=== PATIENT | male | born 1975 | race Caucasian/White ===

== ENCOUNTER 2023-12-26 11:09 | Outpatient (CLI) | payer OTHER, SELFPAY ==
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
--- NOTE | 2023-12-26 11:45 | XR_ITS ---
Patient: EVIN AGOSTO Facility:?[facility] Patient ID:?[id number] Site Patient ID:?[id number]. Site :?1975 Study:?XRay-Spine Lumbar 2 VIEW-12/26/2023 11:56:22 AM Ordering Physician:SKIP Final Report: Indication: Arthritis Technique: Lumbar spine two views Comparison: None Findings: No vertebral body compression fracture. Facet degeneration L5-S1. Mild disc space narrowing and spurring L5-S1. SI joints maintained. No paraspinal mass. Impression: Mild degenerative disc disease and facet degeneration L5-S1. Dictated by Valentin Alvarez MD @ 12/26/2023 12:35:13 PM Signed by:?Valentin Alvarez MD @12/26/2023 12:35:13 PM (Electronic Signature)
== END 2023-12-26 11:10 | disposition home or self-care (01) ==
PROVIDERS: Visit Provider Chiropractor
DX: J01.90 Acute sinusitis, unspecified (principal); M51.37 Other intervertebral disc degeneration, lumbosacral region; M13.80 Other specified arthritis, unspecified site; M19.90 Unspecified osteoarthritis, unspecified site; Z77.128 Contact with and (suspected) exposure to other hazards in the physical environment
CPT/HCPCS: 70160; 72100